=== PATIENT | female | born 1975 | race Caucasian/White ===

== ENCOUNTER → 2020-01-19 | Outpatient (CLI) | payer OTHER ==
[~2020-01-19] MED LIST: CODACE30; CYCL10 PO; ELET40TA; GABA300 PO; HYDACE5 PO; NORT10; ONDA4 PO; ONDA8 PO; ONDA8ODT MM; PROM25 PO; RIZA; RXCYCL10 PO; RXHYDACE PO; RXONDA4ODT MM; SUMA20NI; SUMA6I SC; TOPI25; TOPI50 PO; [UNRECOGNIZED DRUG - REMARK]
[2020-01-21 01:06] LABS: HBSAG SCREEN Negative (Negative); HCV ANTIBODY <0.1 (0.0-0.9)
[2020-01-21 02:06] LABS: HIV SCREEN 4TH GENERATION WRFX Non Reactive (Non Reactive)
== END ==
LOC: LAB SHORT 11:38 → LAB EV 11:38
PROVIDERS: Family Medicine
DX: Z20.9 Contact with and (suspected) exposure to unspecified communicable disease (principal)
CPT/HCPCS: 84460

== ENCOUNTER → 2020-05-21 | Outpatient (CLI) | payer OTHER ==
[2020-05-22 08:09] LABS: HIV SCREEN 4TH GENERATION WRFX Non Reactive (Non Reactive)
== END | disposition home or self-care (01) ==
LOC: LAB SHORT 08:43 → LAB EV 08:43
PROVIDERS: Physician Assistant
DX: Z20.9 Contact with and (suspected) exposure to unspecified communicable disease (principal)
CPT/HCPCS: 86803; 87389

== ENCOUNTER → 2024-11-22 | Outpatient (CLI) | payer MEDICARE, OTHER ==
[~2024-11-22] MED LIST changes: +AJOVY AUTO225 MG/1.1 SC; +DULOXETINE HCL60 M1 PO; +MEDR10 PO; +MULVITA PO; +OXYC5 PO; +PREGABALIN75 MG PO; +TIZANIDINE HCL213 PO
[2024-11-22 13:01] LABS: BASOPHILS ABSOLUTE AUTO 0.02 K/mm3 (0.00-0.23); BASOPHILS PERCENT AUTO 0 % (0-2); EOSINOPHILS ABSOLUTE AUTO 0.31 K/mm3 (0.00-0.68); EOSINOPHILS PERCENT AUTO 6 % (0-6); Hematocrit 44.7 % (33.0-51.0); Hemoglobin 14.6 g/dL (11.5-16.0); IMMATURE GRAN ABSOLUTE AUTO 0.01 K/mm3 (0.00-0.10); IMMATURE GRAN PERCENT AUTO 0 % (0-1); LYMPHOCYTES ABSOLUTE AUTO 1.01 K/mm3 (0.84-5.20); LYMPHOCYTES PERCENT AUTO 19 % (21-46); MONOCYTES ABSOLUTE AUTO 0.42 K/mm3 (0.16-1.47); MONOCYTES PERCENT AUTO 8 % (4-13); Mean Corpuscular HGB 31.5 pg (26.0-34.0); Mean Corpuscular HGB Conc 32.7 g/dL (31.5-36.5); Mean Corpuscular Volume 97 fL (80-100); Mean Platelet Volume 10.8 fL (9.1-12.4); NEUTROPHILS ABSOLUTE AUTO 3.53 K/mm3 (1.96-9.15); NEUTROPHILS PERCENT AUTO 67 % (41-73); Platelet Count 226 K/mm3 (150-400); RDW Coefficient Variation 12.4 % (11.7-14.2); RDW Standard Deviation 43.8 fL (35.1-46.3); Red Blood Cell Count 4.63 M/mm3 (3.80-5.20)
[2024-11-22 14:48] LABS: Anion Gap 9 mmol/L (3-11); Blood Urea Nitrogen 11 mg/dL (8-24); CHOL/HDL RATIO 3.2; CO2, Blood 26 mmol/L (21-32); Calcium, Blood 9.9 mg/dL (8.5-10.1); Chloride, Blood 106 mmol/L (98-108); Cholesterol 200 mg/dL (50-200); Glucose, Blood 110 mg/dL (70-99); HDL Cholesterol 62 mg/dL (>39); Iron Serum 124 ug/dL (50-170); LDL/HDL RATIO 1.7; Low Density Lipoprotein Chol 108 mg/dL (0-110); Percent Saturation 36.2 % (15.0-50.0); Sodium, Blood 137 mmol/L (136-145); Total Iron Binding Capacity 343 ug/dL (250-450); Triglycerides 148 mg/dL (30-160); Very Low Density Lipoprot Chol 29 mg/dL (6-32)
[2024-11-22 14:54] LABS: Bun/Creatinine Ratio 12.4 (12.0-20.0); Creatinine, Blood 0.89 mg/dL (0.40-1.00); Ferritin, Serum 43 ng/mL (8-252); Glomerular Filtration Rate 79 (60-)
== END ==
LOC: LAB 12:20 → LAB SHORT 12:20
PROVIDERS: Nurse Practitioner Family
DX: Z13.6 Encounter for screening for cardiovascular disorders (principal); D64.9 Anemia, unspecified; E55.9 Vitamin D deficiency, unspecified; F32.A Depression, unspecified; E61.1 Iron deficiency; I10 Essential (primary) hypertension
CPT/HCPCS: 80048; 80061; 82306; 82607; 82728; 82746; 83540; 83550; 84443; 85025

== ENCOUNTER → 2025-03-13 | Outpatient (CLI) | payer MEDICARE, OTHER ==
[2025-03-14 09:23] LABS: Stool Occult Bld Immuno 1 Positive (NEGATIVE)
== END ==
LOC: LAB 19:09 → LAB SHORT 19:09
PROVIDERS: Internal Medicine Gastroenterology
DX: Z12.11 Encounter for screening for malignant neoplasm of colon (principal)
CPT/HCPCS: 82274